=== PATIENT | female | born 1935 | race Caucasian/White ===

== ENCOUNTER → 2016-11-20 | Outpatient (CLI) | payer OTHER ==
[~2016-11-20] MED LIST: ACTNUNK; FLUO20CA35 PO; MICO2CRE61; UNABLE; [UNRECOGNIZED DRUG - REMARK]
== END | disposition home or self-care (01) ==
LOC: C.MAMM 12:23
PROVIDERS: ATTEND Internal Medicine
DX: M81.0 Age-related osteoporosis without current pathological fracture (principal); M85.851 Other specified disorders of bone density and structure, right thigh; M85.852 Other specified disorders of bone density and structure, left thigh

== ENCOUNTER → 2017-01-11 | Outpatient (CLI) | payer OTHER ==
[2017-01-15 22:19] LABS: ALBUMIN 3.4 G/DL (3.8-4.8); GAMMA GLOBULIN 1.1 G/DL (0.8-1.7); TOTAL PROTEIN 6.7 G/DL (6.2-8.3)
== END | disposition home or self-care (01) ==
LOC: C.LAB1850 11:23
PROVIDERS: ATTEND Internal Medicine Rheumatology
DX: M15.9 Polyosteoarthritis, unspecified (principal); M81.0 Age-related osteoporosis without current pathological fracture; Z79.52 Long term (current) use of systemic steroids; E55.9 Vitamin D deficiency, unspecified

== ENCOUNTER → 2017-01-18 | Outpatient (CLI) | payer OTHER ==
--- NOTE | 2017-01-18 12:00 | DIAGNOSTIC IMAGING REPORT ---
RIBS BILATERAL WITH PA CHEST CLINICAL HISTORY: R05 [id number] cough. Pain. COMPARISON STUDY: None FINDINGS: Cortical margins are intact throughout. No evidence for fracture. Lungs are considered clear. IMPRESSION: Negative study Electronically signed by: Rishi Steele M.D. 01/18/2017 11:58 AM Dictated Date/Time: 01/18/2017 11:57 AM
== END | disposition home or self-care (01) ==
LOC: C.RAD1850 11:10
PROVIDERS: ATTEND Internal Medicine
DX: R05 Cough (principal)

== ENCOUNTER → 2017-03-16 | Outpatient (CLI) | payer OTHER | END | disposition home or self-care (01) | LOC: C.LAB1850 09:25 | PROVIDERS: ATTEND Internal Medicine Rheumatology | DX: M15.9 Polyosteoarthritis, unspecified (principal); M81.0 Age-related osteoporosis without current pathological fracture; Z79.52 Long term (current) use of systemic steroids; E55.9 Vitamin D deficiency, unspecified ==

== ENCOUNTER → 2017-04-30 | Outpatient (CLI) | payer OTHER | END | disposition home or self-care (01) | LOC: C.LAB1850 12:15 | PROVIDERS: ATTEND Internal Medicine Rheumatology | DX: M15.9 Polyosteoarthritis, unspecified (principal); M81.0 Age-related osteoporosis without current pathological fracture; M35.3 Polymyalgia rheumatica; Z79.52 Long term (current) use of systemic steroids ==

== ENCOUNTER 2024-05-30 16:13 | Inpatient (IN) ==
--- NOTE | 2024-05-30 16:16 | Emergency Department Note ---
Impression & Plan Closed fracture dislocation of shoulder, Fall, Hypertension ED Provider Note NAME: BISI SEWELL AGE: 89 SEX: F : 1935 ARRIVES VIA: Ambulance INFORMANT: Patient, daughter ED PROVIDER(S): Patrick Jaimes MD CHIEF COMPLAINT: Fall, shoulder pain MEDICAL DECISION MAKING: Patient presented due to concern for fall. Patient initially did receive p.o. pain medication and x-rays were obtained. Fracture dislocation of right shoulder noted. I did speak with the on-call orthopedist Dr. Vasquez who stated that he would consider attempting a reduction but may try it just with pain meds alone. He does state that sometimes these will improve on their own and do not necessarily require conscious sedation reduction and/or operative fixation. I did convey this to the patient and the patient's daughter at bedside. IV was established and blood work was obtained. Blood work shows a white count of 15 with the patient is on chronic steroids. No reported infectious symptoms. Hemoglobin is normal. Platelet count is unremarkable. The patient's kidney function is unremarkable. Patient received some IV fentanyl. I did speak with the on-call hospital service after discussing with the daughter does not believe that she can take her home given that she will not be able to use her right upper extremity and does live alone. Patient was given additional IV fentanyl. An attempt was made to reduce the patient's fracture dislocation. This was unsuccessful. We did send Dr. Vasquez Marion text to make him aware the patient would be admitted and that the patient was yet to have a satisfactory reduction. Patient was placed in a sling and the patient was admitted to the medicine service. Patient was noted to be hypertensive and the patient's hypertensive management deferred to inpatient treatment. Procedures: Anterior Shoulder Dislocation Reduction Indication: Shoulder dislocation/fracture Verbal consent obtained. Risks and benefits were explained with the usual customary discussion. A time out was taken. Neurovascular examination before the procedure revealed radial pulse present. Shoulder dislocation anterior shoulder dislocation was attempted to be reduced with inline traction and attempting abduction with external rotation of the right upper extremity. Patient did have some difficulty in tolerating abduction and external rotation but did tolerate inline traction. X-ray was performed as the patient stated that it felt improved. Patient was still noted to be dislocated. Post procedure radial pulse still present patient was placed in a sling. Discussion w/ other healthcare providers: Dr. Vasquez orthopedics Dr. Sher inpatient medicine service Prior /Outside records reviewed: I reviewed a PCP visit from Dr. Montaño. Patient was seen on February 28, 2024 for healthcare maintenance. Known history of PMNR TIA meningioma. Per review of the patient's home medication list the patient does take chronic steroids but no evidence of blood thinning medication. Differential diagnosis: Fracture, sprain, strain, subluxation, dislocation, contusion, ligamentous injury, neurovascular, as well as other etiologies were considered. Diagnostics, as interpreted by me: ECG: Sinus bradycardia rate of 57, normal intervals, normal axis no ST elevations or TWI. Cardiac monitoring: An order was placed for continuous cardiac monitoring. The monitor shows a rate of 68 with sinus rhythm. Patient was placed on pulse oximetry Medical decision rules: None Imaging studies: I informally interpreted the patient's right shoulder x-ray did not show fracture dislocation with formal report to follow. HPI: Patient presents due to concern for fall that occurred just prior to arrival. The patient was reportedly reaching into a garbage can when she fell to her right side striking her shoulder. Patient denies any LOC head strike and no head or neck pain. The patient denies any back chest or abdominal pain and no lower extremity pain. The patient is right-hand dominant. Patient is accompanied by her mother at bedside. She does interpret for the patient declined help desk representative services. Patient denies any left upper extremity pain. Patient does not use blood thinners. Patient does complain of right shoulder pain. PAST MEDICAL HISTORY: See Below PAST SURGICAL HISTORY: See Below SOCIAL HISTORY: See Below HOME MEDICATIONS: See Below ALLERGIES: See Below VITALS: See Below PHYSICAL EXAMINATION: GENERAL: NAD, non-toxic. EYE EXAM: Normal conjunctiva. PERRL, no anisocoria and EOM's grossly intact w/o pain. Head: Normocephalic atraumatic. OROPHARYNX: Moist mucus membranes, grossly normal dentition. NECK: Trachea midline, no stridor. No midline C-spine TTP. LUNGS: Clear to auscultation. Normal chest wall mechanics. Chest: No reproducible chest pain. HEART: NSR, no MRG. ABDOMEN: Abdomen soft, non-tender, no masses, no rebound or guarding. BACK: No CVA TTP. No pain to palpation. SKIN: No rashes and no bruising. UPPER EXTREMITIES: Right shoulder pain, no obvious deformity able to flex and extend at the right elbow and neurovasc intact distally. No pain to the elbow forearm wrist or hand. No pain to the left upper extremity. LOWER EXTREMITIES: Grossly normal, no edema. No TTP or deformity. NEURO EXAM: A&O x3, cranial nerves II-XII grossly intact, normal speech, moves all 4 extremities. 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 Health care maintenance Sleep disturbances Polymyalgia rheumatica (Acute) Osteoporosis (Acute) Hypercholesterolemia (Acute) Hearing loss (Acute) Generalized osteoarthritis of multiple sites (Acute) Depression (Acute) History of glaucoma (Acute) Polyarthropathy, inflammatory (Acute) Superficial thrombophlebitis (Acute) Vitamin D deficiency disease (Acute) Surgical History History of eye surgery glaucoma Abdominal hernia History of cataract surgery S/P appendectomy Family History Mother Myocardial infarction Hearing loss Other No family history of allergies No family history of bleeding disorder Denies family history of Ovarian cancer Prostate cancer Heart disease Breast cancer Colorectal cancer Cancer Hypertension Stroke Asthma Social History Smoking Status: Never smoker Do You Dip or Chew Tobacco: No; Hx Alcohol Use: No Hx Substance Use: No Preferred Language: Taiwanese Communication Ability: Effective Visual Impairment: No Limitations Hearing Ability: Use of Hearing Aid marital status: Current Living Situation: Alone current occupational status: retired How many Children do You have: 2 Feels Safe at Home: Yes Childhood Exposure to Second-Hand Smoke: No Dental Care, Regularly: Yes Physical Activity Frequency: Does not Exercise Seatbelt Use: always Sunscreen Use: Yes Allergies Allergies Allergy/AdvReac Type Severity Reaction Status Date / Time No Known Drug Allergies Allergy Unknown Unknown Verified 05/30/24 19:16 Home Meds Home Medications Medication Instructions Recorded Confirmed ibuprofen 200 mg capsule 200 mg PO BID PRN Pain 10/09/23 05/30/24 atorvastatin 20 mg tablet 20 mg PO PM 05/30/24 05/30/24 calcium carbonate (Calcium 600) 600 mg PO DAILY 05/30/24 05/30/24 cholecalciferol (vitamin D3) 50 50 mcg PO DAILY 05/30/24 05/30/24 mcg (2,000 unit) tablet (Vitamin D3) fluoxetine 20 mg capsule (Prozac) 20 mg PO QAM 05/30/24 05/30/24 prednisone 5 mg tablet 5 mg PO QAM 05/30/24 05/30/24 Previous Rx's Medication Instructions Recorded atorvastatin 20 mg tablet 20 mg PO QPM #90 tabs 01/31/24 Results & Data (ED) Vital Signs Vital Signs - 24 hr 05/30/24 16:19 05/30/24 16:19 Temperature 36.5 C Temperature Source Oral Pulse Rate 67 67 Pulse Rhythm Regular Pulse Strength Normal Respiratory Rate 20 Respiratory Effort / Characteristics Non-Labored Spontaneous Respiratory Depth Normal Respiratory Pattern Regular Blood Pressure 217/115 H Blood Pressure Mean 149 Blood Pressure Position Sitting Pulse Oximetry 99 Oxygen Delivery Method Room Air Sepsis Recent Fever Within 48 Hours No Sepsis New/Unexplained Change in Mental Status No Sepsis Action Taken by Nursing No Action Required Home Medications Current Medication List: was personally reviewed by me Laboratory Data Attestation: I reviewed the patient's lab results. 05/30/24 18:37 05/30/24 18:37 Lab Results 05/30/24 Range/Units 18:37 WBC 15.26 H (4.8-10.8) K/ul RBC 3.99 L (4.20-5.40) M/uL Hgb 12.0 (12.0-16.0) g/dl Hct 36.4 L (37.0-47.0) % MCV 91.2 (80.0-100.0) fL MCH 30.1 (25.0-34.0) pg MCHC 33.0 (32.0-36.0) g/dL RDW Std Deviation 41.1 (36.4-46.3) fL RDW Coeff of Jose 12.4 (11.5-14.5) % Plt Count 279 (130-400) K/uL MPV 9.3 L (9.4-12.4) fL Immature Gran % (Auto) 0.5 % Neut % (Auto) 90.8 % Lymph % (Auto) 4.7 % [place] % (Auto) 3.6 % Eos % (Auto) 0.1 % Baso % (Auto) 0.3 % Neut # (Auto) 13.85 H (1.40-6.50) K/uL Lymph # (Auto) 0.72 L (1.20-3.40) K/uL [place] # (Auto) 0.55 (0.11-0.59) K/uL Eos # (Auto) 0.01 (0.00-0.50) K/uL Baso # (Auto) 0.05 (0.00-0.20) K/uL Immature Gran # (Auto) 0.08 (0.01-0.20) K/uL Echinocytes 1+ PT 10.8 (9.0-12.0) Seconds INR 1.0 (0.9-1.1) Sodium 139 (136-145) mmol/L Potassium 4.3 (3.5-5.1) mmol/L Chloride 107 (98-107) mmol/L Carbon Dioxide 24 (21-32) mmol/L Anion Gap 8 (3-11) BUN 23 (6-23) mg/dl Creatinine 0.99 (0.6-1.2) mg/dl Est Cr Clr Drug Dosing 33.4 ml/min Est GFR ( Amer) 59.0 ml/min Est GFR (Non-Af Amer) 50.9 ml/min BUN/Creatinine Ratio 23.2 H (10-20) Glucose 149 H (70-99(Fasting)) mg/dl Calcium 9.0 (8.6-10.3) mg/dl Administered Medications Discontinued Medications Acetaminophen (Acetaminophen 500 Mg Tab) 1,000 mg PO NOW STA Stop: 05/30/24 16:25 Last Admin: 05/30/24 16:31 Dose: 1,000 mg Documented By: JLT Fentanyl Citrate (Fentanyl Citrate Pf 100 Mcg/2 Ml Vial) 25 mcg IV NOW ONE Stop: 05/30/24 17:16 Last Admin: 05/30/24 17:34 Dose: 25 mcg Documented By: CEF Fentanyl Citrate (Fentanyl Citrate Pf 100 Mcg/2 Ml Vial) 50 mcg IV NOW STA Stop: 05/30/24 18:36 Last Admin: 05/30/24 18:49 Dose: 50 mcg Documented By: CEF Oxycodone HCl (Oxycodone Hcl Ir 5 Mg Tab (Immediate Release)) 5 mg PO NOW STA Stop: 05/30/24 16:25 Last Admin: 05/30/24 16:30 Dose: 5 mg Documented By: JANICE Imaging Data Radiologist's Impression: Humerus X-Ray 05/30/24 16:24 XR humerus RT 2V CLINICAL HISTORY: Upper arm trauma COMPARISON: None FINDINGS: Anterior right shoulder dislocation is noted. There is an associated Hill-Sachs impaction injury with comminuted, displaced right humeral head fracture which involves the greater tuberosity. Bone fragments measure up to 2.6 cm. No distal right humeral fracture is identified. IMPRESSION: 1. Anterior right shoulder dislocation with an associated Hill-Sachs impaction injury with displaced comminuted right humeral head fracture which involves the greater tuberosity. 2. No distal right humeral fracture. ACT 112: Negative or not required by law. Electronically signed by: Toni Salgado M.D. 05/30/2024 4:52 PM Shoulder X-Ray 05/30/24 16:24 XR shoulder RT min 2V routine CLINICAL HISTORY: Right shoulder trauma. COMPARISON: None FINDINGS: There is anterior dislocation of the right humeral head with respect to the glenoid. There is an associated Hill-Sachs impaction injury with acute moderately displaced and comminuted fracture of the right humeral head, involving the greater tuberosity. Alignment of the right acromioclavicular joint is anatomic. IMPRESSION: Anterior right shoulder dislocation with an associated Hill-Sachs impaction injury with displaced comminuted right humeral head fracture which involves the greater tuberosity. ACT 112: Negative or not required by law. Electronically signed by: Toni Salgado M.D. 05/30/2024 4:51 PM Shoulder X-Ray 05/30/24 17:15 XR shoulder RT 1V CLINICAL HISTORY: repeat TECHNIQUE: 1 views of the right shoulder were obtained. Comparison: Comparison is made to shoulder radiograph 05/30/2024 FINDINGS: Redemonstration of dislocation of the right shoulder with associated fracture. Soft tissue swelling is seen about the shoulder. The visualized portions of the lungs are clear. IMPRESSION: Redemonstration of anterior shoulder dislocation with associated fracture. ACT 112: Negative or not required by law. Electronically signed by: Davian Friedman M.D. 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 Comparison: Comparison is made to rib series 01/18/2017 FINDINGS: No lines and tubes are seen. Cardiomegaly is noted. The lungs are clear. No evidence of pleural effusion or pneumothorax. Partial visualization of right shoulder fracture-dislocation. IMPRESSION: No acute abnormalities apart from known shoulder dislocation/fracture. ACT 112: Negative or not required by law. Electronically signed by: Davian Friedman M.D. 05/30/2024 6:09 PM Discharge Plan Visit Data Chief Complaint: Fall Stated Complaint: Fall Shoulder pain ED Provider: Patrick Jaimes Discharge Problem: Closed fracture dislocation of shoulder, Fall, Hypertension Forms Stand Alone Forms: [facility] Prescriptions Prescriptions: No Action ibuprofen 200 mg capsule 200 mg PO BID PRN (Reason: Pain) atorvastatin 20 mg tablet 20 mg PO QPM Qty: 90 3RF prednisone 5 mg tablet 5 mg PO QAM fluoxetine [Prozac] 20 mg capsule 20 mg PO QAM atorvastatin 20 mg Tablet 20 mg PO PM calcium carbonate [Calcium 600] 600 mg calcium (1,500 mg) Tablet 600 mg PO DAILY cholecalciferol (vitamin D3) [Vitamin D3] 50 mcg (2,000 unit) Tablet 50 mcg PO DAILY Referrals Referrals: Corry Olivarez MD [Primary Care Provider] - Discharge Problem: Closed fracture dislocation of shoulder Qualifiers: Encounter type: initial encounter Laterality: right Qualified Code(s): S42.91XA - Fracture of right shoulder girdle, part unspecified, initial encounter for closed fracture Fall Qualifiers: Encounter type: initial encounter Qualified Code(s): W19.XXXA - Unspecified fall, initial encounter Hypertension Qualifiers: Hypertension type: unspecified Qualified Code(s): I10 - Essential (primary) hypertension
[2024-05-30] MEDS: oxyCODONE HCL IR 5 MG TAB (IMMEDIATE RELEASE) PO STA (16:30)
[2024-05-30] MEDS: ACETAMINOPHEN 500 MG TAB PO STA (16:31)
--- NOTE | 2024-05-30 16:53 | XRay Report ---
XR humerus RT 2V CLINICAL HISTORY: Upper arm trauma COMPARISON: None FINDINGS: Anterior right shoulder dislocation is noted. There is an associated Hill-Sachs impaction injury with comminuted, displaced right humeral head fracture which involves the greater tuberosity. Bone fragments measure up to 2.6 cm. No distal right humeral fracture is identified. IMPRESSION: 1. Anterior right shoulder dislocation with an associated Hill-Sachs impaction injury with displaced comminuted right humeral head fracture which involves the greater tuberosity. 2. No distal right humeral fracture. ACT 112: Negative or not required by law. Electronically signed by: Toni Salgado M.D. 05/30/2024 4:52 PM
--- NOTE | 2024-05-30 16:53 | XRay Report ---
XR shoulder RT min 2V routine CLINICAL HISTORY: Right shoulder trauma. COMPARISON: None FINDINGS: There is anterior dislocation of the right humeral head with respect to the glenoid. There is an associated Hill-Sachs impaction injury with acute moderately displaced and comminuted fracture of the right humeral head, involving the greater tuberosity. Alignment of the right acromioclavicula r joint is anatomic. IMPRESSION: Anterior right shoulder dislocation with an associated Hill-Sachs impaction injury with d isplaced comminuted right humeral head fracture which involves the greater tuberosity. ACT 112: Negative or not required by law. Electronically signed by: Toni Salgado M.D. 05/30/2024 4:51 PM
[2024-05-30] MEDS: fentaNYL citrate PF 100 MCG/2 ML VIAL IV ONE (17:34)
--- NOTE | 2024-05-30 18:12 | XRay Report ---
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 Comparison: Comparison is made to rib series 01/18/2017 FINDINGS: No lines and tubes are seen. Cardiomegaly is noted. The lungs are clear. No evidence of pleural effus ion or pneumothorax. Partial visualization of right shoulder fracture-dislocation. IMPRESSION: No acute abnormalities apart from known shoulder dislocation/fracture. ACT 112: Negative or not required by law. Electronically signed by: Davian Friedman M.D. 05/30/2024 6:09 PM
--- NOTE | 2024-05-30 18:15 | History & Physical Report ---
Date of Service May 30, 2024 Assessment & Plan (1) Dislocation of right shoulder joint: Plan: Admit to med/surge on pulse oximetry Currently stable and nontoxic-appearing Presented to the ED via EMS after she sustained a mechanical fall due to placing weight on her trash can which gave out from under her Did not hit her head or lose consciousness Sustained an anterior right shoulder dislocation with associated hillSachs impaction injury with displaced comminuted right humeral head fracture which involves the greater tuberosity No other acute trauma on exam or imaging ED will reduce the patient's dislocated shoulder shortly and placement of swe lling Patient's daughter will be able to move in with her to help care for her but cannot do this tonight, will most likely be able to bring her home on 05/31/2024 Will order PT/OT consults to ensure she is safe to be discharged home tomorrow with her daughter Patient is neurovascularly intact Pain control with scheduled Tylenol and as needed morphine for severe pain As needed IV Narcan for oversedation or respiratory depression Heart healthy diet with easy to texture and aspiration precautions Fall precautions Bilateral TOSHIA stockings for DVT prophylaxis Will follow-up on initial labs ordered prior to admission Monitor a.m. CBC, CMP, PT/INR (2) Fall: Plan: Patient sustained mechanical fall as she tried to place her weight on her garbage can earlier today which slid out from under her causing her to fall to the ground Rest of care per right shoulder dislocation plan (3) Polymyalgia rheumatica: Plan: Is on chronic 5 mg prednisone daily No signs of adrenal sufficiency Continue to monitor for adrenal insufficiency moving forward but will hold stress dose steroids for now Will continue her home 5 mg prednisone daily (4) TIA (transient ischemic attack): Plan: Nonfocal neurologic exam Denies new neurologic symptoms prior to or after fall Continue home statin Plan The patient was discussed with Dr. Sher at the time of admission History of Present Illness Chief Complaint: Fall, right shoulder pain Primary Care Provider: Corry Olivarez MD Lauren is an 89-year-old female with a past medical history significant for PMR and giant cell arteritis (on 5 mg prednisone daily), osteoporosis, TIA, who presented to the [facility] ED on 05/30/2024 via EMS after sustaining a ground-level fall at home with resultant right upper extremity pain. She was noted to be hypertensive on arrival at 217/115 but was otherwise stable. X-ray of the right humerus was read as anterior right shoulder dislocates that with an associated he Hill-Sachs impaction injury with displaced commuted right humeral head fracture which involves the greater tuberosity. No distal right humeral fracture. Chest x-ray was negative for other signs of acute findings besides her known right shoulder injury. The ED spoke with orthopedics who explained that the patient should be placed in a sling after shoulder dislocation reduction followed outpatient. After discussions with the patient and family it was determined that the patient is not safe to return home tonight as she lives by herself and family is unable to care tonight. Prior to admission the patient was given 5 mg oxycodone, 25 mcg IV fentanyl, and 1 g p.o. Tylenol. Patient was sitting in bed in no acute distress at time of exam with her daughter bedside, history is obtained both. The patient explains that she normally does not leave her house but needed to check her trash can outside to see if she accidentally threw something away that she should not have. Her da yurihter explains that the patient has a garbage can on wheels, she placed her weight on the garbage can to look in in the garbage can rolled out from under her causing her to fall. The patient denies hitting her head or losing consciousness. Her only pain at this time is her right shoulder pain. Denies lightheadedness, dizziness, chest pain, palpitations, unilateral weakness or paresthesias prior to her fall. Her daughter explains that she will be able to move in with her mother to help care for her however she is unable to coordinate this tonight and should be able to take her home tomorrow, 05/31/2024. We discussed CODE STATUS, likely explained that the patient is a DNR/DNI. She would want her daughter to make medical decisions for her if she cannot make them herself. Please refer to Dr. Sher' attestation for any changes to the treatment plan Allergies Allergy/AdvReac Type Severity Reaction Status Date / Time No Known Drug Allergies Allergy Unknown Unknown Verified 05/30/24 19:16 Home Medications Medication Instructions Recorded Confirmed Type ibuprofen 200 mg capsule 200 mg PO BID PRN Pain 10/09/23 05/30/24 History atorvastatin 20 mg tablet 20 mg PO QPM #90 tabs 04/11/24 08/09/24 Rx atorvastatin 20 mg tablet 20 mg PO PM 05/30/24 05/30/24 History calcium carbonate (Calcium 600) 600 mg PO DAILY 05/30/24 05/30/24 History cholecalciferol (vitamin D3) 50 50 mcg PO DAILY 05/30/24 05/30/24 History mcg (2,000 unit) tablet (Vitamin D3) fluoxetine 20 mg capsule (Prozac) 20 mg PO QAM 05/30/24 05/30/24 History prednisone 5 mg tablet 5 mg PO QAM 05/30/24 05/30/24 History 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 Health care maintenance Sleep disturbances Polymyalgia rheumatica (Acute) Osteoporosis (Acute) Hypercholesterolemia (Acute) Hearing loss (Acute) Generalized osteoarthritis of multiple sites (Acute) Depression (Acute) History of glaucoma (Acute) Polyarthropathy, inflammatory (Acute) Superficial thrombophlebitis (Acute) Vitamin D deficiency disease (Acute) Surgical History History of eye surgery glaucoma Abdominal hernia History of cataract surgery S/P appendectomy Family History Mother Myocardial infarction Hearing loss Other No family history of allergies No family history of bleeding disorder Denies family history of Ovarian cancer Prostate cancer Heart disease Breast cancer Colorectal cancer Cancer Hypertension Stroke Asthma Social History Smoking Status: Never smoker Do You Dip or Chew Tobacco: No; Hx Alcohol Use: No Hx Substance Use: No Preferred Language: Beninese Communication Ability: Effective Visual Impairment: No Limitations Hearing Ability: Use of Hearing Aid marital status: Current Living Situation: Alone current occupational status: retired How many Children do You have: 2 Feels Safe at Home: Yes Childhood Exposure to Second-Hand Smoke: No Dental Care, Regularly: Yes Physical Activity Frequency: Does not Exercise Seatbelt Use: always Sunscreen Use: Yes Physical Exam Physical Exam: Physical Exam: General: In no acute distress, stated age, nontoxic-appearing HEENT: Normocephalic, atraumatic, no scleral icterus, pupils around round, symmetrical, and reactive to light, dry mucus membranes, trachea midline, no thyromegaly Chest/Pulm: No respiratory distress, symmetrical chest expansion, clear breath sounds throughout Cardiac: RRR, no murmurs noted Abdomen: Negative for ascites and bruising, normoactive bowel sounds, soft, non-tender to palpation throughout Musculoskeletal: Patient with right upper extremity currently in April rotated with elbow flexed resting on her chest with anterior deformity. No other acute trauma on examination Extremities: Radial, dorsalis pedis, and posterior tibial pulses are intact and symmetrical, no edema noted in the BL LE's Skin: Patient with small skin abrasion on the lateral aspect of the right fifth digit with dried blood, currently without signs of bleeding Neuro: Alert and oriented to person, place, month, year, and president, no focal defects, no tremors noted Psych: No acute distress, calm and cooperative during the exam Results & Data Results & Data Vital Signs (Past 12 Hours) Vital Signs Temp Pulse Resp BP Pulse Ox O2 Del Method 05/30/24 16:19 36.5 C 67 20 217/115 H 99 Room Air Laboratory Results Will follow-up with CBC and CMP ordered just prior to admission Diagnostic Findings Humerus X-Ray 05/30/24 16:24 XR humerus RT 2V CLINICAL HISTORY: Upper arm trauma COMPARISON: None FINDINGS: Anterior right shoulder dislocation is noted. There is an associated Hill-Sachs impaction injury with comminuted, displaced right humeral head fracture which involves the greater tuberosity. Bone fragments measure up to 2.6 cm. No distal right humeral fracture is identified. IMPRESSION: 1. Anterior right shoulder dislocation with an associated Hill-Sachs impaction injury with displaced comminuted right humeral head fracture which involves the greater tuberosity. 2. No distal right humeral fracture. ACT 112: Negative or not required by law. Electronically signed by: Toni Salgado M.D. 05/30/2024 4:52 PM Shoulder X-Ray 05/30/24 16:24 XR shoulder RT min 2V routine CLINICAL HISTORY: Right shoulder trauma. COMPARISON: None FINDINGS: There is anterior dislocation of the right humeral head with respect to the glenoid. There is an associated Hill-Sachs impaction injury with acute moderately displaced and comminuted fracture of the right humeral head, involving the greater tuberosity. Alignment of the right acromioclavicular joint is anatomic. IMPRESSION: Anterior right shoulder dislocation with an associated Hill-Sachs impaction injury with displaced comminuted right humeral head fracture which involves the greater tuberosity. ACT 112: Negative or not required by law. Electronically signed by: Toni Salgado M.D. 05/30/2024 4:51 PM Shoulder X-Ray 05/30/24 17:15 XR shoulder RT 1V CLINICAL HISTORY: repeat TECHNIQUE: 1 views of the right shoulder were obtained. Comparison: Comparison is made to shoulder radiograph 05/30/2024 FINDINGS: Redemonstration of dislocation of the right shoulder with associated fracture. Soft tissue swelling is seen about the shoulder. The visualized portions of the lungs are clear. IMPRESSION: Redemonstration of anterior shoulder dislocation with associated fracture. ACT 112: Negative or not required by law. Electronically signed by: Davian Friedman M.D. 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 Comparison: Comparison is made to rib series 01/18/2017 FINDINGS: No lines and tubes are seen. Cardiomegaly is noted. The lungs are clear. No evidence of pleural effusion or pneumothorax. Partial visualization of right shoulder fracture-dislocation. IMPRESSION: No acute abnormalities apart from known shoulder dislocation/fracture. ACT 112: Negative or not required by law. Electronically signed by: Davian Friedman M.D. 05/30/2024 6:09 PM ECG Additional Comments: Sinus bradycardia without acute ST segment or T wave changes Code Status & VTE Plan Code Status DNR/DNI VTE Prophylaxis Plan VTE Prophylaxis will be ordered: Yes Supervising Physician Co-Signing Physician Notes I have personally seen, evaluated and examined the patient. I have also personally discussed the management of the patient with the resident physician/NICHELLE and I agree with the exam findings documented in the history and physical examination and the documented assessment and plan unless otherwise stated below. Brief Exam: In general this is an 89-year-old female who is alert and oriented x 3. She is accompanied by her daughter at the time he does some translation for us from Setswana to Beninese. HEENT: Normocephalic atraumatic. Heart: Regular no appreciable murmur. Lungs: Diminished due to poor inspiratory effort but essentially clear. Extremities: Intact with no significant peripheral edema. Specifically right upper extremity is neurovascularly intact with good peripheral pulses. She is status post attempted closed reduction. Postreduction x-rays are pending. Neurologically: Alert and oriented no focal deficit. Assessment/plan: As described above. Please refer to orders for further planning. PG Care Time/CCT Total # of Minutes Spent Total Time Spent with Patient: Total time spent is greater than 50% in coordination of care (as documented) at patient's floor/unit and/or counseling patient: Coding [place] [address] INT INP/OBS CARE 2/55MIN Patient Type Established Medical Decision Making Moderate Complexity Diagnoses Dislocation of right shoulder joint S43.004A Fall W19.XXXA Polymyalgia rheumatica M35.3 TIA (transient ischemic attack) G45.9
[2024-05-30] MEDS ORDERED: NALOXONE HCL 0.4 MG/1 ML VIAL/CARP IV PRN (18:42)
[2024-05-30] MEDS: fentaNYL citrate PF 100 MCG/2 ML VIAL IV STA (18:49)
[2024-05-30 18:52] LABS: Hematocrit (blood only) 36.4 % (37.0-47.0); Mean Corpuscular Hemoglobin 30.1 pg (25.0-34.0); Mean Corpuscular Volume 91.2 fL (80.0-100.0); Mean Platelet Volume 9.3 fL (9.4-12.4); Platelet Count 279 K/uL (130-400); RDW Coefficient of Variation 12.4 % (11.5-14.5); RDW Standard Deviation 41.1 fL (36.4-46.3); Red Blood Count 3.99 M/uL (4.20-5.40); White Blood Count 15.26 K/ul (4.8-10.8)
[2024-05-30 19:10] LABS: BUN Creatinine Ratio 23.2 (10-20); Creatinine Clr Calc Pharmacy 33.4 ml/min; Est GFR (Non-African American) 50.9 ml/min; Potassium 4.3 mmol/L (3.5-5.1)
[2024-05-30 19:18] LABS: Prothrombin Time 10.8 Seconds (9.0-12.0)
[2024-05-30 19:19] LABS: Basophils # (auto) 0.05 K/uL (0.00-0.20); Basophils % (auto) 0.3 %; Echinocytes 1+; Eosinophils # (auto) 0.01 K/uL (0.00-0.50); Eosinophils % (auto) 0.1 %; Immature Granulocytes # (auto) 0.08 K/uL (0.01-0.20); Immature Granulocytes % (auto) 0.5 %; Lymphocytes # (auto) 0.72 K/uL (1.20-3.40); Lymphocytes % (auto) 4.7 %; Monocytes # (auto) 0.55 K/uL (0.11-0.59); Monocytes % (auto) 3.6 %; Neutrophils # (auto) 13.85 K/uL (1.40-6.50); Neutrophils % (auto) 90.8 %
[2024-05-30] MEDS ORDERED: MoRPHine SULFATE 2 MG/ML CARP IV PRN (20:16)
[2024-05-30] MEDS ORDERED: ATORVASTATIN 20 MG TAB PO SCH (21:09)
[2024-05-30] MEDS: ACETAMINOPHEN 325 MG TAB PO SCH (22:25)
[2024-05-30] MEDS: ATORVASTATIN 20 MG TAB PO SCH (22:25)
[2024-05-30] MEDS: FAMOTIDINE 10 MG TABLET PO ONE (23:27)
--- NOTE | 2024-05-30 23:53 | CT Scan Report ---
Exam(s): CT RIGHT SHOULDER Without Contrast EXAM: CT Right Upper Extremity Without Intravenous Contrast, Shoulder CLINICAL HISTORY: Reason for exam: Dislocation, eval fx pattern for potential surgery. TECHNIQUE: Axial computed tomography images of the right shoulder without intravenous contrast. CTDI is 28 mGy and DLP is 541 mGy-cm. Automated exposure control was utilized for the study. A dose lowering technique was utilized adhering to the principles of ALARA. COMPARISON: X-ray 05/30/2024 FINDINGS: Anterior dislocation of the shoulder. Comminuted impaction fracturing at the posterior humeral head neck junction. The glenoid is intact. Lipohemarthrosis within the joint. No other fracture. Unremarkable appearance of the acromioclavicular joint. Visualized portion of the right lung is clear. IMPRESSION: 1. Anterior dislocation of the shoulder. Comminuted impaction fracturing at the posterior humeral head neck junction. The glenoid is intact. 2. Lipohemarthrosis within the joint. Electronically signed by: Vincenzo Whipple MD 05/30/24 23:52 PM
[2024-05-31 06:48] LABS: Basophils # (auto) 0.05 K/uL (0.00-0.20); Basophils % (auto) 0.4 %; Eosinophils # (auto) 0.05 K/uL (0.00-0.50); Eosinophils % (auto) 0.4 %; Hematocrit (blood only) 35.9 % (37.0-47.0); Immature Granulocytes # (auto) 0.05 K/uL (0.01-0.20); Immature Granulocytes % (auto) 0.4 %; Lymphocytes # (auto) 1.82 K/uL (1.20-3.40); Lymphocytes % (auto) 15.3 %; Mean Corpuscular Hemoglobin 30.8 pg (25.0-34.0); Mean Corpuscular Hgb Conc 33.4 g/dL (32.0-36.0); Mean Corpuscular Volume 92.1 fL (80.0-100.0); Mean Platelet Volume 9.3 fL (9.4-12.4); Monocytes # (auto) 0.88 K/uL (0.11-0.59); Monocytes % (auto) 7.4 %; Neutrophils # (auto) 9.03 K/uL (1.40-6.50); Neutrophils % (auto) 76.1 %; Platelet Count 263 K/uL (130-400); RDW Coefficient of Variation 12.4 % (11.5-14.5); RDW Standard Deviation 41.3 fL (36.4-46.3); White Blood Count 11.88 K/ul (4.8-10.8)
[2024-05-31 07:18] LABS: Albumin Globulin Ratio 1.3 (0.9-2); Albumin Level 3.5 gm/dl (3.4-5.0); BUN Creatinine Ratio 20.7 (10-20); Bilirubin,Total 0.9 mg/dl (0.2-1.0); Calcium 8.2 mg/dl (8.6-10.3); Creatinine Clr Calc Pharmacy 39.4 ml/min; Est GFR (Non-African American) 63.9 ml/min; Globulin 2.8 gm/dl (2.5-4.0); Potassium 3.7 mmol/L (3.5-5.1); Total Protein 6.3 gm/dl (6.0-8.3)
--- NOTE | 2024-05-31 07:51 | XRay Report ---
XR shoulder RT min 2V routine CLINICAL HISTORY: repeat COMPARISON: Right shoulder radiographs May 30, 2024 at 5:33 PM. FINDINGS: There is a persistent anterior right shoulder dislocation within associated Hill-Sachs imp action injury with displaced comminuted right humeral head fracture. IMPRESSION: Persistent anterior right shoulder within associated Hill-Sachs impaction injury with dis placed comminuted right humeral head fracture. ACT 112: Negative or not required by law. Electronically signed by: Toni Salgado M.D. 05/31/2024 7:50 AM
--- NOTE | 2024-05-31 08:26 | Anesthesiology Consultation ---
Date of Service May 31, 2024 Assessment & Plan Chart Review Chart Review: Acceptable Risk for Surgery and Patient NOT seen in Pre Admission Testing Consults Requested none ASA ASA4 Proposed Anesthesia Anesthesia Type: General History Surgery Operation Date: 05/31/24 08:00 Proposed Procedures p Open Reduction Internal Fixation Robina Vasquez MD Height/Weight Height: 4 ft 11 in Weight: 66.9 kg Allergies Allergy/AdvReac Type Severity Reaction Status Date / Time No Known Drug Allergies Allergy Unknown Unknown Verified 05/30/24 19:16 Medications Home Medications Medication Instructions Recorded Confirmed Last Taken ibuprofen 200 mg capsule 200 mg PO BID PRN Pain 10/09/23 05/30/24 Unknown atorvastatin 20 mg tablet 20 mg PO QPM #90 tabs 01/31/24 05/30/24 05/29/24 atorvastatin 20 mg tablet 20 mg PO PM 05/30/24 05/30/24 05/29/24 calcium carbonate (Calcium 600) 600 mg PO DAILY 05/30/24 05/30/24 05/30/24 cholecalciferol (vitamin D3) 50 50 mcg PO DAILY 05/30/24 05/30/24 05/30/24 mcg (2,000 unit) tablet (Vitamin D3) fluoxetine 20 mg capsule (Prozac) 20 mg PO QAM 05/30/24 05/30/24 05/30/24 prednisone 5 mg tablet 5 mg PO QAM 05/30/24 05/30/24 05/30/24 Active Medications Generic Name Dose Route Start Last Admin Trade Name Freq PRN Reason Stop Dose Admin Atorvastatin Calcium 20 mg 05/30/24 21:09 05/30/24 22:25 Atorvastatin 20 Mg Tab PO 06/29/24 21:08 20 mg QPM BEATRICE Administration Past Medical History HLD HTN Hx/o meningioma Hx/o TIA Hx/o transient visual loss Giant Cell arteritis PMR mild cognitive disorder osteoporosis depression glaucoma arthralgias Exercise / Class Metabolic Activity III < 4 Walking/Shop/Light housework Past Family History Family History Mother Myocardial infarction Hearing loss Other No family history of allergies No family history of bleeding disorder Denies family history of Ovarian cancer Prostate cancer Heart disease Breast cancer Colorectal cancer Cancer Hypertension Stroke Asthma Past Surgical History Surgical History History of eye surgery glaucoma Abdominal hernia History of cataract surgery S/P appendectomy Past Anesthesia History No Hx of Anesthesia Complications and No Family Hx of Anesthesia Complications History of PONV No Hx of PONV and No Hx of Motion Sickness Social History Smoking Status: Former smoker Do You Dip or Chew Tobacco: No Hx Alcohol Use: No Hx Substance Use: No substance use type: does not use Physical Exam Vital Signs Last Vital Signs Temp 36.8 C 05/31/24 07:31 Pulse 59 L 05/31/24 07:31 Resp 16 05/31/24 07:31 BP 167/80 H 05/31/24 07:31 Pulse Ox 94 05/31/24 07:31 O2 Del Method Room Air 05/31/24 07:31 Testing Laboratory Results 05/31/24 06:10 05/31/24 06:10 PT 10.8 Seconds (9.0-12.0) 05/30/24 18:37 INR 1.0 (0.9-1.1) 05/30/24 18:37 Electrocardiogram Date: 05/30/24 Findings: + LVH and + SB @ (@ 57) Chest X-Ray Date: 05/30/24 Findings: + NAD and + cardiomegaly
[2024-05-31] MEDS ORDERED: PROPOFOL IV EMULSION 10 MG/ML 20 ML VIAL IV ONE (08:55)
[2024-05-31] MEDS ORDERED: KETAMINE HCL 10MG/ML SYR ONE (08:55)
--- NOTE | 2024-05-31 08:57 | Orthopedic Consultation ---
Date of Service May 31, 2024 Assessment & Plan (1) Closed fracture dislocation of shoulder: I reviewed the diagnosis, prognosis, and treatment options. Given that she has relative good function and had normal shoulder prior to the injury, this needs to be treated with a closed reduction. If necessary today, I would make an incision to ensure that the reduction is performed and this may involve a rotator cuff repair. I did discuss the outcomes of tuberosity fractures and the potential need for further repair of the rotator cuff mechanism versus reverse shoulder arthroplasty is a remote possibility. The plan will be to do a closed reduction to preserve the shoulder joint and restore function. Likely this is all that she needs. I reviewed with her and her daughter that the risks include, but are not limited to, infection in the case of incision, nerve or vessel injury, failure of treatment, need for further surgery, pain syndromes, blood clots, and complications leg anesthesia. They both demonstrated a good understanding, understood the risk involved, and want to proceed with intervention to realign the shoulder joint. History of Present Illness Reason for Consultation: Right shoulder fracture dislocation Requesting Physician: Dario Haji Attending Physician: Tim Rivera MD 89-year-old female who is relatively healthy and active and lives independently in her own home sustained a fall when she was leaning over the trash can last night resulting in immediate pain and deformity to her right shoulder. She was seen in the emergency room. Closed reduction under light sedation was attempted but failed. She was admitted for further care. Orthopedic surgery consulted for shoulder care. She is evaluated with her daughter present. She previous had full function of that shoulder. She describes no numbness or tingling the right upper extremity. Maintains good hand function. This is her dominant side. Allergies Allergy/AdvReac Type Severity Reaction Status Date / Time No Known Drug Allergies Allergy Unknown Unknown Verified 05/30/24 19:16 Home Medications Medication Instructions Recorded Confirmed Type ibuprofen 200 mg capsule 200 mg PO BID PRN Pain 10/09/23 05/30/24 History atorvastatin 20 mg tablet 20 mg PO QPM #90 tabs 01/31/24 05/30/24 Rx atorvastatin 20 mg tablet 20 mg PO PM 05/30/24 05/30/24 History calcium carbonate (Calcium 600) 600 mg PO DAILY 05/30/24 05/30/24 History cholecalciferol (vitamin D3) 50 50 mcg PO DAILY 05/30/24 05/30/24 History mcg (2,000 unit) tablet (Vitamin D3) fluoxetine 20 mg capsule (Prozac) 20 mg PO QAM 05/30/24 05/30/24 History prednisone 5 mg tablet 5 mg PO QAM 05/30/24 05/30/24 History Past Med/Surg History Problem List Hypertension (Acute) Fall (Acute) Closed fracture dislocation of shoulder (Acute 05/30/24) displaced comminuted right humeral head fracture which involves the greater tuberosity from a fall Dislocation of right shoulder joint Fall Transient visual loss Meningioma TIA (transient ischemic attack) GCA (giant cell arteritis) Arthralgia Mild cognitive disorder Hyperglycemia Tinnitus, bilateral 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 Health care maintenance Sleep disturbances Polymyalgia rheumatica (Acute) Osteoporosis (Acute) Hypercholesterolemia (Acute) Hearing loss (Acute) Generalized osteoarthritis of multiple sites (Acute) Depression (Acute) History of glaucoma (Acute) Polyarthropathy, inflammatory (Acute) Superficial thrombophlebitis (Acute) Vitamin D deficiency disease (Acute) Surgical History History of eye surgery glaucoma Abdominal hernia History of cataract surgery S/P appendectomy Family History Mother Myocardial infarction Hearing loss Other No family history of allergies No family history of bleeding disorder Denies family history of Ovarian cancer Prostate cancer Heart disease Breast cancer Colorectal cancer Cancer Hypertension Stroke Asthma Social History Smoking Status: Former smoker Do You Dip or Chew Tobacco: No; Hx Alcohol Use: No Hx Substance Use: No Preferred Language: Wallisian Communication Ability: Effective Visual Impairment: No Limitations Hearing Ability: Use of Hearing Aid Trauma Manager Required: Yes Beliefs That Will Affect Care: Druze Druze Beliefs: Wallisian marital status: Current Living Situation: Alone current occupational status: retired How many Children do You have: 2 Other Information That Helps Us Care for You: No Feels Safe at Home: Yes Safety Concerns: Feels Safe At This Time Childhood Exposure to Second-Hand Smoke: No Dental Care, Regularly: Yes Physical Activity Frequency: Does not Exercise Seatbelt Use: always Sunscreen Use: Yes Assistive Devices: Hearing Aid - Bilateral and Walker Review of Systems All systems reviewed & are unremarkable except as noted in HPI & below. Physical Exam Right shoulder: Overlying skin is intact. No significant deformity appreciable. Arm held in a sling. Sensation grossly intact to light touch. Motor intact to the AIN/ulnar/radial nerve distribution. Constitutional WD/WN, vitals as above Respiratory normal respiratory effort; no respiratory distress Cardiovascular Extremities: normal capillary refill; no edema Chest (Breasts) Chest: normal inspection of chest Skin no rashes, warm and dry Psychiatric A+Ox3, euthymic affect Results & Data Results & Data Laboratory Results H & H 05/30/24 05/31/24 Range/Units 18:37 06:10 Hgb 12.0 12.0 (12.0-16.0) g/dl Hct 36.4 L 35.9 L (37.0-47.0) % Coagulation 05/30/24 Range/Units 18:37 INR 1.0 (0.9-1.1) Diagnostic Findings Right shoulder CT scan demonstrates a fracture dislocation. The fracture involves the Hill-Sachs region of the humeral head. Humeral head is incarcerated on the Hill-Sachs lesion on the glenoid rim. No obvious glenoid disturbance. PG Care Time/CCT Total # of Minutes Spent Total Time Spent with Patient: Total time spent is greater than 50% in coordination of care (as documented) at patient's floor/unit and/or counseling patient: Coding Level of Care Code 58380 IN/OBS CONSULT LVL 4,60M (57 - DECISION FOR SURGERY) Diagnoses Closed fracture dislocation of shoulder S42.91XA Encounter type: initial encounter Laterality: right (1) Closed fracture dislocation of shoulder Encounter type: initial encounter Laterality: right Qualified Code(s): S42.91XA - Fracture of right shoulder girdle, part unspecified, initial encounter for closed fracture
--- NOTE | 2024-05-31 09:02 | Electrocardiogram Report ---
Test Reason : Blood Pressure : */* mmHG Vent. Rate : 57 BPM Atrial Rate : 57 BPM P-R Int : 142 ms QRS Dur : 72 ms QT Int : 464 ms P-R-T Axes : 55 7 42 degrees QTcB Int : 451 ms Sinus bradycardia Minimal voltage criteria for LVH, may be normal variant ( R in aVL ) Borderline ECG When compared with ECG of 05-Feb-2011 16:32, No significant change Confirmed by Reymundo Haas ([id number]) on 05/31/2024 9:02:45 AM Referred By: REFERRED SELF Confirmed By: Reymundo Haas
[2024-05-31] MEDS ORDERED: fentaNYL citrate PF 100 MCG/2 ML VIAL ONE (09:31)
[2024-05-31] MEDS ORDERED: NALOXONE HCL 0.4 MG/1 ML VIAL/CARP IV PRN (09:37)
[2024-05-31] MEDS ORDERED: ATROPINE SULFATE 0.1 MG/ML 10ML SYR IV PRN (09:37)
[2024-05-31] MEDS ORDERED: PROMETHAZINE HCL 6.25 MG in SODIUM CHLORIDE 0.9% 50 ML IV PRN (09:37)
[2024-05-31] MEDS ORDERED: ePHEDrine sulfate 50 MG/ML AMP IV PRN (09:37)
[2024-05-31] MEDS ORDERED: ONDANSETRON INJ 2 MG/ML 2 ML VIAL IV PRN (09:37)
[2024-05-31] MEDS: fentaNYL citrate PF 100 MCG/2 ML VIAL IV PRN (09:44)
--- NOTE | 2024-05-31 09:49 | Operative Report ---
PG Post Operative Report Pre & Post Diagnosis Operation Date: 05/31/24 08:00 Pre-Op Diagnosis: Right shoulder dislocation Post-Op Diagnosis: Right shoulder dislocation I identified the patient and participated in the time-out.: Yes Procedure Operation Date: 05/31/24 08:00 Actual Procedures p Right Shoulder Closed Reduction(Right) - Dario Vasquez MD Surgeon Dario Vasquez MD Zone Manager None Estimated Blood Loss 0 Findings See Below Palpable reduction. Stable to 45 degrees of abduction and 20 degrees of external rotation. Specimens None Anesthesia Type MAC Complications none Disposition Accompanied Patient To Recovery: Yes Disposition: Recovery Room Indications 89-year-old female fell onto outstretched arm resulting in a right proximal humerus fracture dislocation involving the posterior aspect of the greater tuberosity. Closed reduction attempted by the ER were unsuccessful. She was admitted overnight for further care. I recommend a closed, possible open, reduction expeditiously. I reviewed the risk, benefits, and alternatives in detail to the patient and her daughter. They were agreeable to proceed. Informed consent was obtained in the preoperative holding area. Description of Procedure On the day of surgery, the patient was greeted in the preoperative holding area. The informed consent was reviewed and confirmed by myself and the patient. The patient identified the surgical site and was marked by me. The patient was then turned over to anesthesia. She was taken to the OR. She was left on the hospital bed. Monitored anesthesia care was induced. Surgical timeout was called by the circulating nurse, and verified by all present. Equipment was available and functional. Initiate a closed reduction maneuvers with inline traction forward flexion and manual manipulation of the proximal humerus to get a palpable reduction. Immediately her range of motion was improved. It felt reliably stable through abduction and external rotation until beyond 45 degrees of external rotation. She had full forward flexion. Multiple fluoroscopic views including an axillary lateral view were obtained to ensure a concentric reduction. This point the procedure was complete. The arm was placed in a postoperative sling with abduction pillow with waist strap to control the arm. She was turned back over to anesthesia for recovery. She was transported to the recovery room aware of her surroundings and without complications. Disposition: She will be nonweightbearing to the right upper extremity. Range of motion will be allowed through the elbow with the arm held against her flank. Wrist and digital motion as tolerated. Will remain in the sling for 6 weeks, and she should be evaluated radiographically in our clinic in 1 to 2 weeks to ensure appropriate alignment of the fracture and reduction of the joint. She will remain inpatient to evaluate her home care needs before transfer or dischar ge. I attest to the content of the Intraoperative Record and any orders documented therein. Any exceptions are noted below.
--- NOTE | 2024-05-31 09:59 | Fluoroscopy Report ---
FL shoulder RT min 2V CLINICAL HISTORY: RT CLOSED REDUCTION SHOULDER/POSSIBLE OPEN COMPARISON STUDY: Right shoulder radiographs and right shoulder CT May 30, 2024. FLUOROSCOPY TIME: 6 seconds. Ka, r: 0.33 mGy FLUOROSCOPIC IMAGES: 4 FINDINGS: Fluoroscopy was provided during closed reduction of the right shoulder dislocation. These i mages demonstrate anatomic alignment of the right glenohumeral joint following reduction. In addition , alignment of the right humeral head fracture has markedly improved. IMPRESSION: Fluoroscopy right during closed reduction of the right shoulder dislocation/fracture. ACT 112: Negative or not required by law. Electronically signed by: Toni Salgado M.D. 05/31/2024 9:57 AM
[2024-05-31] MEDS: fentaNYL citrate PF 100 MCG/2 ML VIAL ONE (10:00)
[2024-05-31] MEDS: LABETALOL HCL IV 5 MG/ML 20ML IV PRN (10:06)
--- NOTE | 2024-05-31 10:18 | Anesthesiology Progress Note ---
Date of Service May 31, 2024 Anesthesia Post Procedure Vital Signs Vital Signs: Temp Pulse Pulse Pulse Resp BP BP 05/31/24 10:15 36.3 C L 65 19 05/31/24 10:06 67 175/69 H 05/31/24 10:05 70 17 05/31/24 09:55 64 20 05/31/24 09:45 77 22 05/31/24 09:39 36.0 C L 65 14 05/31/24 07:31 36.8 C 59 L 16 167/80 H 05/30/24 20:45 05/30/24 20:45 36.6 C 60 18 182/73 H 05/30/24 20:20 90 18 172/105 H 05/30/24 16:19 67 05/30/24 16:19 36.5 C 67 20 217/115 H BP Pulse Ox O2 Del Method O2 Flow Rate 05/31/24 10:15 153/56 H 95 Nasal Cannula 2 05/31/24 10:06 05/31/24 10:05 175/69 H 92 Nasal Cannula 2 05/31/24 09:55 186/78 H 93 Room Air 05/31/24 09:45 189/73 H 99 Oxymask 8 05/31/24 09:39 222/109 H 100 Oxymask 8 05/31/24 07:31 94 Room Air 05/30/24 20:45 Room Air 05/30/24 20:45 96 Room Air 05/30/24 20:20 95 Room Air 05/30/24 16:19 05/30/24 16:19 99 Room Air Pain Intensity Right Shoulder: Pain Intensity: 3 Transfer of Care Handoff Completed per policy Notes Mental Status: alert / awake / arousable Patient Amnestic to Procedure: Yes Nausea / Vomiting: adequately controlled Pain: adequately controlled Airway Patency, RR, SpO2: stable & adequate BP & HR: stable & adequate Hydration State: stable & adequate Anesthetic Complications: no major complications apparent
[2024-05-31] MEDS: FLUoxetine HCL 20 MG CAP PO SCH (10:38)
[2024-05-31] MEDS: predniSONE 5 MG TAB PO SCH (10:38)
[2024-05-31] MEDS: SODIUM CHLORIDE 0.9% 1,000 ML IV SCH (10:39)
--- NOTE | 2024-05-31 10:43 | XRay Report ---
XR shoulder RT min 2V routine CLINICAL HISTORY: Post shoulder surgery COMPARISON: Right shoulder radiographs and right shoulder CT May 30, 2024. FINDINGS: Alignment of the right glenohumeral joint is anatomic post reduction. Alignment of the rig ht humeral head fracture extending through the greater tuberosity has significantly improved. An asso ciated 8 mm fracture fragment is present. Fracture is mildly displaced and comminuted. Mild right bas ilar opacity favors atelectasis. IMPRESSION: Anatomic alignment of the right glenohumeral joint post reduction. Significant improvemen t in alignment of the right humeral head fracture post reduction. ACT 112: Negative or not required by law. Electronically signed by: Toni Salgado M.D. 05/31/2024 10:41 AMr
--- NOTE | 2024-05-31 16:05 | Hospitalist Progress Note ---
Date of Service May 31, 2024 Assessment & Plan (1) Dislocation of right shoulder joint: Plan: Presented to the ED via EMS after she sustained a mechanical fall due to placing weight on her trash can which gave out from under her Did not hit her head or lose consciousness Sustained an anterior right shoulder dislocation with associated hillSachs impaction injury with displaced comminuted right humeral head fracture which involves the greater tuberosity Patient had right shoulder closed reduction done in the OR by orthopedics PT/OT consulted Pain control with scheduled Tylenol and as needed morphine for severe pain As needed IV Narcan for oversedation or respiratory depression Heart healthy diet with easy to texture and aspiration precautions Fall precautions (2) Fall: Plan: Patient sustained mechanical fall as she tried to place her weight on her garbage can earlier today which slid out from under her causing her to fall to the ground Rest of care per right shoulder dislocation plan Consult PT/OT (3) Polymyalgia rheumatica: Plan: Is on chronic 5 mg prednisone daily No signs of adrenal sufficiency Continue to monitor for adrenal insufficiency moving forward but will hold stress dose steroids for now Will continue her home 5 mg prednisone daily (4) TIA (transient ischemic attack): Plan: Nonfocal neurologic exam Denies new neurologic symptoms prior to or after fall Continue home statin Plan Pending PT/OT and case management eval for disposition needs Admission and Anticipated Discharge Date Admission Date: May 30, 2024 Subjective Patient just came out of the OR when I met her in her room. She is still quite groggy. Met with her daughter at the bedside. Review of Systems Review of Systems: Unobtainable due to reduced consciousness Physical Exam Physical Exam: General: Sleepy, arousable Heart: S1, S2/regular rate and rhythm, no murmur rubs or gallops Lungs: Clear to auscultation bilaterally. Normal effort Abdomen: Soft/nontender/nondistended. No hepatosplenomegaly Extremities: No clubbing/cyanosis. No edema Behavior: Unable to assess Results & Data Results & Data Vital Signs (Past 12 Hours) Vital Signs Temp Pulse Pulse Pulse Resp BP BP 05/31/24 15:33 36.4 C L 71 1 L 153/78 H 05/31/24 13:30 36.6 C 76 16 141/88 H 05/31/24 12:33 36.5 C 80 18 133/75 05/31/24 11:30 36.6 C 74 16 140/75 05/31/24 11:00 36.5 C 78 16 127/73 05/31/24 10:30 36.5 C 66 16 138/77 05/31/24 10:15 36.3 C L 65 19 05/31/24 10:06 67 175/69 H 05/31/24 10:05 70 17 05/31/24 09:55 64 20 05/31/24 09:45 77 22 05/31/24 09:39 36.0 C L 65 14 05/31/24 07:31 36.8 C 59 L 16 167/80 H BP Pulse Ox O2 Del Method O2 Flow Rate 05/31/24 15:33 95 Room Air 05/31/24 13:30 97 Nasal Cannula 2 05/31/24 12:33 97 Nasal Cannula 2 05/31/24 11:30 97 Nasal Cannula 2 05/31/24 11:00 96 Nasal Cannula 2 05/31/24 10:30 94 Room Air 05/31/24 10:15 153/56 H 95 Nasal Cannula 2 05/31/24 10:06 05/31/24 10:05 175/69 H 92 Nasal Cannula 2 05/31/24 09:55 186/78 H 93 Room Air 05/31/24 09:45 189/73 H 99 Oxymask 8 05/31/24 09:39 222/109 H 100 Oxymask 8 05/31/24 07:31 94 Room Air Laboratory Results Abnormal lab results 05/30/24 05/31/24 Range/Units 18:37 06:10 WBC 15.26 H 11.88 H (4.8-10.8) K/ul RBC 3.99 L 3.90 L (4.20-5.40) M/uL Hct 36.4 L 35.9 L (37.0-47.0) % MPV 9.3 L 9.3 L (9.4-12.4) fL Neut # (Auto) 13.85 H 9.03 H (1.40-6.50) K/uL Lymph # (Auto) 0.72 L (1.20-3.40) K/uL [place] # (Auto) 0.88 H (0.11-0.59) K/uL BUN/Creatinine Ratio 23.2 H 20.7 H (10-20) Glucose 149 H 110 H (70-99(Fasting)) mg/dl Calcium 8.2 L (8.6-10.3) mg/dl PG Care Time/CCT Total # of Minutes Spent Total Time Spent with Patient: Total time spent is greater than 50% in coordination of care (as documented) at patient's floor/unit and/or counseling patient: Coding Level of Care Code 21798 SUB INP/OBS CARE 2/35MIN Diagnoses Dislocation of right shoulder joint S43.004A Fall W19.XXXA Polymyalgia rheumatica M35.3 TIA (transient ischemic attack) G45.9
[2024-06-01 07:13] LABS: Basophils # (auto) 0.04 K/uL (0.00-0.20); Basophils % (auto) 0.3 %; Eosinophils # (auto) 0.06 K/uL (0.00-0.50); Eosinophils % (auto) 0.5 %; Hemoglobin 11.6 g/dl (12.0-16.0); Immature Granulocytes # (auto) 0.07 K/uL (0.01-0.20); Immature Granulocytes % (auto) 0.6 %; Lymphocytes # (auto) 1.41 K/uL (1.20-3.40); Lymphocytes % (auto) 11.7 %; Mean Corpuscular Hemoglobin 30.5 pg (25.0-34.0); Mean Corpuscular Hgb Conc 33.1 g/dL (32.0-36.0); Mean Corpuscular Volume 92.1 fL (80.0-100.0); Mean Platelet Volume 9.3 fL (9.4-12.4); Monocytes # (auto) 0.92 K/uL (0.11-0.59); Monocytes % (auto) 7.6 %; Neutrophils # (auto) 9.59 K/uL (1.40-6.50); Neutrophils % (auto) 79.3 %; Platelet Count 257 K/uL (130-400); RDW Coefficient of Variation 12.4 % (11.5-14.5); RDW Standard Deviation 41.8 fL (36.4-46.3); White Blood Count 12.09 K/ul (4.8-10.8)
[2024-06-01 08:01] LABS: Albumin Globulin Ratio 1.2 (0.9-2); Albumin Level 3.4 gm/dl (3.4-5.0); BUN Creatinine Ratio 14.7 (10-20); Bilirubin,Total 1.1 mg/dl (0.2-1.0); Calcium 7.9 mg/dl (8.6-10.3); Creatinine Clr Calc Pharmacy 43.1 ml/min; Est GFR (African American) 82.5 ml/min; Est GFR (Non-African American) 71.2 ml/min; Globulin 2.8 gm/dl (2.5-4.0); Potassium 3.9 mmol/L (3.5-5.1); Total Protein 6.2 gm/dl (6.0-8.3)
[2024-06-01] MEDS: ACETAMINOPHEN 325 MG TAB PO PRN (08:39)
[2024-06-01] MEDS: DOCUSATE SODIUM 100 MG CAP PO SCH (10:01)
[2024-06-01] MEDS: POLYETHYLENE (MIRALAX) 17 GM PACK PO SCH (10:01)
--- NOTE | 2024-06-01 14:27 | Orthopedic Progress Note ---
Date of Service June 01, 2024 Assessment & Plan (1) Closed fracture dislocation of shoulder: Postop day 1 for closed reduction of the glenohumeral fracture dislocation under anesthesia. - Continue sling and nonweightbearing to the right upper extremity. - Sling can be open for elbow wrist and digital range of motion. She can use the arm for eating and other ADLs with minimal weightbearing and with the arm held closely to her side. Prefer no external rotation for several weeks. - Plan for 6 weeks of strict sling use followed by physical therapy to optimize functional range of motion. No plans for surgical intervention at this time Dispo: Orthopedically stable for discharge. She has complex discharge planning needs because she lives alone. Subjective Reports that she is having some discomfort about the shoulder as she has gotten up and moved. No new injuries or sensations of instability. No issues with the sling other than the belly strap may be a little tight. She is having some mild left rib pain. Daughter was present in the room with us again today and helped with translation and some of the history. Review of Systems All systems reviewed & are unremarkable except as noted in HPI & below. Physical Exam Sitting upright in the chair next to the bed. Appears comfortable. The sling was position well. Right upper extremity: Mild edema, as expected to the anterior shoulder. Sling was opened up for elbow drop out. She could achieve full elbow extension, rolled her wrist and range all her fingers. She seemed comfortable with that. I demonstrated that range of motion and the usefulness for this for eating. Physical therapy was in the room at the time. Arm was placed back in the sling. Neurovascularly intact. Constitutional WD/WN, vitals as above no acute distress and not intoxicated appearing Respiratory normal respiratory effort; no labored breathing Cardiovascular Extremities: normal capillary refill Results & Data Results & Data Laboratory Results . Diagnostic Findings . PG Care Time/CCT Total # of Minutes Spent Total Time Spent with Patient: Total time spent is greater than 50% in coordination of care (as documented) at patient's floor/unit and/or counseling patient: Coding Level of Care Code 96350 Post Operative Follow-Up Diagnoses Closed fracture dislocation of shoulder S42.90XA
--- NOTE | 2024-06-01 16:30 | Hospitalist Progress Note ---
Date of Service June 01, 2024 Assessment & Plan (1) Dislocation of right shoulder joint: Plan: Presented to the ED via EMS after she sustained a mechanical fall due to placing weight on her trash can which gave out from under her Did not hit her head or lose consciousness Sustained an anterior right shoulder dislocation with associated hillSachs impaction injury with displaced comminuted right humeral head fracture which involves the greater tuberosity Patient had right shoulder closed reduction done in the OR by orthopedics PT/OT recommends inpatient rehab Pain control with scheduled Tylenol and as needed morphine for severe pain As needed IV Narcan for oversedation or respiratory depression Heart healthy diet with easy to texture and aspiration precautions Fall precautions (2) Fall: Plan: Patient sustained mechanical fall as she tried to place her weight on her garbage can earlier today which slid out from under her causing her to fall to the ground Rest of care per right shoulder dislocation plan PT/OT recommend inpatient rehab (3) Polymyalgia rheumatica: Plan: Is on chronic 5 mg prednisone daily No signs of adrenal sufficiency Continue to monitor for adrenal insufficiency moving forward but will hold stress dose steroids for now Will continue her home 5 mg prednisone daily (4) TIA (transient ischemic attack): Plan: Nonfocal neurologic exam Denies new neurologic symptoms prior to or after fall Continue home statin Plan PT/OT recommends inpatient rehab. Case management involved Admission and Anticipated Discharge Date Admission Date: May 30, 2024 Subjective Patient feels well. Denies chest pain or shortness of breath. Daughter at the bedside. Review of Systems Review of Systems: All systems reviewed & are unremarkable except as noted in Subjective Physical Exam Physical Exam: General: Awake, conversant Heart: S1, S2/regular rate and rhythm, no murmur rubs or gallops Lungs: Clear to auscultation bilaterally. Normal effort Abdomen: Soft/nontender/nondistended. No hepatosplenomegaly Extremities: No clubbing/cyanosis. No edema. Right arm in sling. Behavior: Appropriate, cooperative Results & Data Results & Data Vital Signs (Past 12 Hours) Vital Signs Temp Pulse Resp BP Pulse Ox O2 Del Method 06/01/24 14:46 36.3 C L 69 16 133/62 94 Room Air 06/01/24 10:47 36.6 C 69 16 121/68 94 Room Air 06/01/24 07:54 60 18 136/75 94 Room Air PG Care Time/CCT Total # of Minutes Spent Total Time Spent with Patient: Total time spent is greater than 50% in coordination of care (as documented) at patient's floor/unit and/or counseling patient: Coding Level of Care Code 39400 SUB INP/OBS CARE 2/35MIN Diagnoses Dislocation of right shoulder joint S43.004A Fall W19.XXXA Polymyalgia rheumatica M35.3 TIA (transient ischemic attack) G45.9
[2024-06-02 07:18] LABS: Basophils # (auto) 0.05 K/uL (0.00-0.20); Basophils % (auto) 0.5 %; Hematocrit (blood only) 37.4 % (37.0-47.0); Hemoglobin 12.1 g/dl (12.0-16.0); Immature Granulocytes # (auto) 0.05 K/uL (0.01-0.20); Immature Granulocytes % (auto) 0.5 %; Lymphocytes # (auto) 1.47 K/uL (1.20-3.40); Lymphocytes % (auto) 14.6 %; Mean Corpuscular Hemoglobin 30.6 pg (25.0-34.0); Mean Corpuscular Hgb Conc 32.4 g/dL (32.0-36.0); Mean Corpuscular Volume 94.4 fL (80.0-100.0); Mean Platelet Volume 9.4 fL (9.4-12.4); Monocytes # (auto) 0.76 K/uL (0.11-0.59); Monocytes % (auto) 7.6 %; Neutrophils # (auto) 7.61 K/uL (1.40-6.50); Neutrophils % (auto) 75.8 %; Platelet Count 260 K/uL (130-400); RDW Coefficient of Variation 12.4 % (11.5-14.5); RDW Standard Deviation 43.4 fL (36.4-46.3); Red Blood Count 3.96 M/uL (4.20-5.40); White Blood Count 10.04 K/ul (4.8-10.8)
[2024-06-02 07:29] LABS: Albumin Globulin Ratio 1.1 (0.9-2); Albumin Level 3.6 gm/dl (3.4-5.0); BUN Creatinine Ratio 14.6 (10-20); Bilirubin,Total 0.9 mg/dl (0.2-1.0); Calcium 8.3 mg/dl (8.6-10.3); Creatinine Clr Calc Pharmacy 39.4 ml/min; Est GFR (Non-African American) 63.9 ml/min; Globulin 3.2 gm/dl (2.5-4.0); Potassium 3.9 mmol/L (3.5-5.1); Total Protein 6.8 gm/dl (6.0-8.3)
--- NOTE | 2024-06-02 11:34 | Orthopedic Progress Note ---
Date of Service June 02, 2024 Assessment & Plan (1) Closed fracture dislocation of shoulder: Postop day 2 for closed reduction of the glenohumeral fracture dislocation under anesthesia. - Continue sling and nonweightbearing to the right upper extremity. - Sling can be open for elbow wrist and digital range of motion. She can use the arm for eating and other ADLs with minimal weightbearing and with the arm held closely to her side. Prefer no external rotation for several weeks. - Plan for 6 weeks of strict sling use followed by physical therapy to optimize functional range of motion. No plans for surgical intervention at this time Dispo: Orthopedically stable for discharge. Subjective Operation Date: 05/31/24 08:00 Actual Procedures p Right Shoulder Closed Reduction(Right) - Dario Vasquez MD Zari is an 89-year-old female who is postop day 2 from her right shoulder closed reduction by Dr. Vasquez. She is resting in her hospital bed. She is hard of hearing and also has some difficulty with [place], however she is able to provide me with an update on herself today. She states she is doing well. She is wearing her sling and abduction pillow as instructed. She denies any fever, chills or constitutional symptoms. She denies any loss of sensation in the right upper extremity, specifically around the deltoid. No other questions or concerns today. Review of Systems All systems reviewed & are unremarkable except as noted in HPI & below. Physical Exam General: Alert and oriented. He is a little hard of hearing. Right shoulder: Inspection unremarkable. No obvious deformity. No open wounds. She is resting in her sling with abduction pillow in place. Sensation intact. Distal pulses palpated. Cap refill less than 3 seconds. Psychiatric A+Ox3, euthymic affect Results & Data Results & Data Laboratory Results . Diagnostic Findings . PG Care Time/CCT Total # of Minutes Spent Total Time Spent with Patient: Total time spent is greater than 50% in coordination of care (as documented) at patient's floor/unit and/or counseling patient: Coding Level of Care Code 59217 Post Operative Follow-Up Diagnoses Closed fracture dislocation of shoulder S42.90XA
--- NOTE | 2024-06-02 14:04 | Hospitalist Progress Note ---
Date of Service June 02, 2024 Assessment & Plan (1) Dislocation of right shoulder joint: Plan: Presented to the ED via EMS after she sustained a mechanical fall due to placing weight on her trash can which gave out from under her Did not hit her head or lose consciousness Sustained an anterior right shoulder dislocation with associated hillSachs impaction injury with displaced comminuted right humeral head fracture which involves the greater tuberosity Patient had right shoulder closed reduction done in the OR by orthopedics PT/OT recommends inpatient rehab Pain control with scheduled Tylenol. Patient has not been using morphine lately. Will discontinue. Discontinue IV Narcan as well. Heart healthy diet with easy to texture and aspiration precautions Fall precautions (2) Fall: Plan: Patient sustained mechanical fall as she tried to place her weight on her garbage can earlier today which slid out from under her causing her to fall to the ground Rest of care per right shoulder dislocation plan PT/OT recommend inpatient rehab (3) Polymyalgia rheumatica: Plan: Is on chronic 5 mg prednisone daily No signs of adrenal sufficiency Will continue her home 5 mg prednisone daily (4) TIA (transient ischemic attack): Plan: Nonfocal neurologic exam Denies new neurologic symptoms prior to or after fall Continue home statin Plan PT/OT recommends inpatient rehab. Case management involved Admission and Anticipated Discharge Date Admission Date: May 30, 2024 Subjective Patient feels well. Denies chest pain or shortness of breath. Review of Systems Review of Systems: All systems reviewed & are unremarkable except as noted in Subjective Physical Exam Physical Exam: General: Awake, conversant Heart: S1, S2/regular rate and rhythm, no murmur rubs or gallops Lungs: Clear to auscultation bilaterally. Normal effort Abdomen: Soft/nontender/nondistended. No hepatosplenomegaly Extremities: No clubbing/cyanosis. No edema. Right arm in sling. Behavior: Appropriate, cooperative Results & Data Results & Data Vital Signs (Past 12 Hours) Vital Signs Temp Pulse Resp BP Pulse Ox O2 Del Method 06/02/24 07:21 36.7 C 63 18 165/72 H 95 Room Air Laboratory Results Abnormal lab results 06/02/24 Range/Units 06:54 RBC 3.96 L (4.20-5.40) M/uL Neut # (Auto) 7.61 H (1.40-6.50) K/uL [place] # (Auto) 0.76 H (0.11-0.59) K/uL Glucose 113 H (70-99(Fasting)) mg/dl Calcium 8.3 L (8.6-10.3) mg/dl PG Care Time/CCT Total # of Minutes Spent Total Time Spent with Patient: Total time spent is greater than 50% in coordination of care (as documented) at patient's floor/unit and/or counseling patient: Coding Level of Care Code 10024 SUB INP/OBS CARE 2/35MIN Diagnoses Dislocation of right shoulder joint S43.004A Fall W19.XXXA Polymyalgia rheumatica M35.3 TIA (transient ischemic attack) G45.9
--- NOTE | 2024-06-03 15:43 | Hospitalist Progress Note ---
Date of Service June 03, 2024 Assessment & Plan (1) Dislocation of right shoulder joint: Plan: Presented to the ED via EMS after she sustained a mechanical fall due to placing weight on her trash can which gave out from under her Did not hit her head or lose consciousness Sustained an anterior right shoulder dislocation with associated hillSachs impaction injury with displaced comminuted right humeral head fracture which involves the greater tuberosity Patient had right shoulder closed reduction done in the OR by orthopedics PT/OT recommends inpatient rehab Pain control with scheduled Tylenol. Heart healthy diet with easy to texture and aspiration precautions Fall precautions (2) Fall: Plan: Patient sustained mechanical fall as she tried to place her weight on her garbage can earlier today which slid out from under her causing her to fall to the ground Rest of care per right shoulder dislocation plan PT/OT recommend inpatient rehab (3) Polymyalgia rheumatica: Plan: Is on chronic 5 mg prednisone daily No signs of adrenal sufficiency Will continue her home 5 mg prednisone daily (4) TIA (transient ischemic attack): Plan: Nonfocal neurologic exam Denies new neurologic symptoms prior to or after fall Continue home statin Plan PT/OT recommends inpatient rehab. Case management involved Admission and Anticipated Discharge Date Admission Date: May 30, 2024 Subjective Patient feels well. Denies chest pain or shortness of breath. Review of Systems Review of Systems: All systems reviewed & are unremarkable except as noted in Subjective Physical Exam Physical Exam: General: Awake, conversant Heart: S1, S2/regular rate and rhythm, no murmur rubs or gallops Lungs: Clear to auscultation bilaterally. Normal effort Abdomen: Soft/nontender/nondistended. No hepatosplenomegaly Extremities: No clubbing/cyanosis. No edema. Right arm in sling. Behavior: Appropriate, cooperative Results & Data Results & Data Vital Signs (Past 12 Hours) Vital Signs Temp Pulse Resp BP Pulse Ox O2 Del Method 06/03/24 15:31 36.7 C 61 18 138/76 96 Room Air 06/03/24 08:06 36.4 C L 77 16 136/7 L 77 L Room Air 06/03/24 07:20 Room Air PG Care Time/CCT Total # of Minutes Spent Total Time Spent with Patient: Total time spent is greater than 50% in coordination of care (as documented) at patient's floor/unit and/or counseling patient: Coding Level of Care Code 41667 SUB INP/OBS CARE MIN Diagnoses Dislocation of right shoulder joint S43.004A Fall W19.XXXA Polymyalgia rheumatica M35.3 TIA (transient ischemic attack) G45.9
--- NOTE | 2024-06-04 14:55 | Hospitalist Progress Note ---
Date of Service June 04, 2024 Assessment & Plan (1) Dislocation of right shoulder joint: Plan: Presented to the ED via EMS after she sustained a mechanical fall due to placing weight on her trash can which gave out from under her Did not hit her head or lose consciousness Sustained an anterior right shoulder dislocation with associated hillSachs impaction injury with displaced comminuted right humeral head fracture which involves the greater tuberosity Patient had right shoulder closed reduction done in the OR by orthopedics PT/OT recommends inpatient rehab Pain control with scheduled Tylenol. Heart healthy diet with easy to texture and aspiration precautions Fall precautions (2) Fall: Plan: Patient sustained mechanical fall as she tried to place her weight on her garbage can earlier today which slid out from under her causing her to fall to the ground Rest of care per right shoulder dislocation plan PT/OT recommend inpatient rehab (3) Polymyalgia rheumatica: Plan: Is on chronic 5 mg prednisone daily No signs of adrenal sufficiency Will continue her home 5 mg prednisone daily (4) TIA (transient ischemic attack): Plan: Nonfocal neurologic exam Denies new neurologic symptoms prior to or after fall Continue home statin Plan PT/OT recommends inpatient rehab. Case management working on placement Admission and Anticipated Discharge Date Admission Date: May 30, 2024 Subjective Patient has no new complaints. Feeling well overall. Awaiting rehab placement. Review of Systems Review of Systems: All systems reviewed & are unremarkable except as noted in Subjective Physical Exam Physical Exam: General: Awake, conversant Heart: S1, S2/regular rate and rhythm, no murmur rubs or gallops Lungs: Clear to auscultation bilaterally. Normal effort Abdomen: Soft/nontender/nondistended. No hepatosplenomegaly Extremities: No clubbing/cyanosis. No edema. Right arm in sling. Behavior: Appropriate, cooperative Results & Data Results & Data Vital Signs (Past 12 Hours) Vital Signs Temp Pulse Resp BP Pulse Ox O2 Del Method 06/04/24 07:30 Room Air 06/04/24 07:10 36.5 C 65 16 157/77 H 94 Room Air PG Care Time/CCT Total # of Minutes Spent Total Time Spent with Patient: Total time spent is greater than 50% in coordination of care (as documented) at patient's floor/unit and/or counseling patient: Coding Level of Care Code 98664 SUB INP/OBS CARE 2/35MIN Diagnoses Dislocation of right shoulder joint S43.004A Fall W19.XXXA Polymyalgia rheumatica M35.3 TIA (transient ischemic attack) G45.9
--- NOTE | 2024-06-05 14:41 | Hospitalist Progress Note ---
Date of Service June 05, 2024 Assessment & Plan (1) Dislocation of right shoulder joint: Plan: Presented to the ED via EMS after she sustained a mechanical fall due to placing weight on her trash can which gave out from under her Did not hit her head or lose consciousness Sustained an anterior right shoulder dislocation with associated hillSachs impaction injury with displaced comminuted right humeral head fracture which involves the greater tuberosity Patient had right shoulder closed reduction done in the OR by orthopedics PT/OT recommends inpatient rehab Pain control with scheduled Tylenol. Heart healthy diet with easy to texture and aspiration precautions Fall precautions (2) Fall: Plan: Patient sustained mechanical fall as she tried to place her weight on her garbage can earlier today which slid out from under her causing her to fall to the ground Rest of care per right shoulder dislocation plan PT/OT recommend inpatient rehab (3) Polymyalgia rheumatica: Plan: Is on chronic 5 mg prednisone daily No signs of adrenal sufficiency Will continue her home 5 mg prednisone daily (4) TIA (transient ischemic attack): Plan: Nonfocal neurologic exam Denies new neurologic symptoms prior to or after fall Continue home statin Plan PT/OT recommends inpatient rehab. Peer to peer completed with insurance. Inpatient rehab denied. Case management working on SNF placement Admission and Anticipated Discharge Date Admission Date: May 30, 2024 Subjective Patient has no new complaints. Review of Systems Review of Systems: All systems reviewed & are unremarkable except as noted in Subjective Physical Exam Physical Exam: General: Awake, conversant Heart: S1, S2/regular rate and rhythm, no murmur rubs or gallops Lungs: Clear to auscultation bilaterally. Normal effort Abdomen: Soft/nontender/nondistended. No hepatosplenomegaly Extremities: No clubbing/cyanosis. No edema. Right arm in sling. Behavior: Appropriate, cooperative Results & Data Results & Data Vital Signs (Past 12 Hours) Vital Signs Temp Pulse Resp BP Pulse Ox O2 Del Method 06/05/24 07:15 Room Air 06/05/24 06:58 36.6 C 71 16 146/83 H 98 Room Air PG Care Time/CCT Total # of Minutes Spent Total Time Spent with Patient: Total time spent is greater than 50% in coordination of care (as documented) at patient's floor/unit and/or counseling patient: Coding Level of Care Code 69522 SUB INP/OBS CARE 2/35MIN Diagnoses Dislocation of right shoulder joint S43.004A Fall W19.XXXA Polymyalgia rheumatica M35.3 TIA (transient ischemic attack) G45.9
[2024-06-05 21:09] VITALS: O2SAT 96
--- NOTE | 2024-06-06 09:47 | Discharge Summary ---
Date of Service June 06, 2024 Admission HPI Per Admitting Provider Lauren is an 89-year-old female with a past medical history significant for PMR and giant cell arteritis (on 5 mg prednisone daily), osteoporosis, TIA, who presented to the [facility] ED on 05/30/2024 via EMS after sustaining a ground-level fall at home with resultant right upper extremity pain. She was noted to be hypertensive on arrival at 217/115 but was otherwise stable. X-ray of the right humerus was read as anterior right shoulder dislocates that with an associated he Hill-Sachs impaction injury with displaced commuted right humeral head fracture which involves the greater tuberosity. No distal right humeral fracture. Chest x-ray was negative for other signs of acute findings besides her known right shoulder injury. The ED spoke with orthopedics who explained that the patient should be placed in a sling after shoulder dislocation reduction followed outpatient. After discussions with the patient and family it was determined that the patient is not safe to return home tonight as she lives by herself and family is unable to care tonight. Prior to admission the patient was given 5 mg oxycodone, 25 mcg IV fentanyl, and 1 g p.o. Tylenol. Patient was sitting in bed in no acute distress at time of exam with her daughter bedside, history is obtained both. The patient explains that she normally does not leave her house but needed to check her trash can outside to see if she accidentally threw something away that she should not have. Her daughter explains that the patient has a garbage can on wheels, she placed her weight on the garbage can to look in in the garbage can rolled out from under her causing her to fall. The patient denies hitting her head or losing consciousness. Her only pain at this time is her right shoulder pain. Denies lightheadedness, dizziness, chest pain, palpitations, unilateral weakness or paresthesias prior to her fall. Her daughter explains that she will be able to move in with her mother to help care for her however she is unable to coordinate this tonight and should be able to take her home tomorrow, 05/31/2024. We discussed CODE STATUS, likely explained that the patient is a DNR/DNI. She would want her daughter to make medical decisions for her if she cannot make them herself. Please refer to Dr. Sher' attestation for any changes to the treatment plan Admission Exam Per Admitting Provider General: In no acute distress, stated age, nontoxic-appearing HEENT: Normocephalic, atraumatic, no scleral icterus, pupils around round, symmetrical, and reactive to light, dry mucus membranes, trachea midline, no thyromegaly Chest/Pulm: No respiratory distress, symmetrical chest expansion, clear breath sounds throughout Cardiac: RRR, no murmurs noted Abdomen: Negative for ascites and bruising, normoactive bowel sounds, soft, non- tender to palpation throughout Musculoskeletal: Patient with right upper extremity currently in April rotated with elbow flexed resting on her chest with anterior deformity. No other acute trauma on examination Extremities: Radial, dorsalis pedis, and posterior tibial pulses are intact and symmetrical, no edema noted in the BL LE's Skin: Patient with small skin abrasion on the lateral aspect of the right fifth digit with dried blood, currently without signs of bleeding Neuro: Alert and oriented to person, place, month, year, and president, no focal defects, no tremors noted Psych: No acute distress, calm and cooperative during the exam Principal Diagnosis Closed fracture dislocation of right shoulder status post closed reduction Fall Discharge Exam General: Awake, conversant Heart: S1, S2/regular rate and rhythm, no murmur rubs or gallops Lungs: Clear to auscultation bilaterally. Normal effort Abdomen: Soft/nontender/nondistended. No hepatosplenomegaly Extremities: No clubbing/cyanosis. No edema. Right arm in sling. Behavior: Appropriate, cooperative Discharge Data Allergies Allergy/AdvReac Type Severity Reaction Status Date / Time No Known Drug Allergies Allergy Unknown Unknown Verified 05/30/24 19:16 Consultations 05/30/24 19:03 ED Decision to Admit Stat 05/30/24 19:36 Consult Orthopedic Surgery Routine Procedures Performed Operation Date: 05/31/24 08:00 Actual Procedures p Right Shoulder Closed Reduction (Right) - Dario Vasquez MD Ordered Studies 05/30/24 20:22 CT shoulder RT wo con Stat 05/31/24 [place] shoulder RT min 2V Routine Hospital Course (1) Dislocation of right shoulder joint: Presented to the ED via EMS after she sustained a mechanical fall due to placing weight on her trash can which gave out from under her Did not hit her head or lose consciousness Sustained an anterior right shoulder dislocation with associated hillSachs impaction injury with displaced comminuted right humeral head fracture which involves the greater tuberosity Patient had right shoulder closed reduction done in the OR by orthopedics PT/OT recommends rehab Pain control with scheduled Tylenol. Heart healthy diet with easy to texture and aspiration precautions Fall precautions (2) Fall: Patient sustained mechanical fall as she tried to place her weight on her garbage can earlier today which slid out from under her causing her to fall to the ground Rest of care per right shoulder dislocation plan PT/OT recommend rehab (3) Polymyalgia rheumatica: Is on chronic 5 mg prednisone daily No signs of adrenal sufficiency Will continue her home 5 mg prednisone daily (4) TIA (transient ischemic attack): Nonfocal neurologic exam Denies new neurologic symptoms prior to or after fall Continue home statin Plan Discharge to SNF Total Time Total Time Spent Total Time Spent (In Minutes): 35 Discharge Plan Discharge Items Patient Disposition: Transfer Shelter Fac Reason For Visit: FALL, RIGHT SHOULDER DISLOCATION Discharge Diagnosis: Closed fracture dislocation of right shoulder status post closed reduction Fall Activity: Resume your previous activity Non-emergency contact: Primary Care Provider Call non-emergency contact if: you have any medication questions and your symptoms worsen Follow-up/Referrals: Corry Olivarez MD [Primary Care Provider] - Diet: Heart Healthy Addtl Attending Provider Instructions: Advised to follow-up with PCP in 1 week Pending Studies at Discharge: No Stand-Alone Forms: My [facility] Skilled Items Patient informed of condition?: Yes DNR: Yes Discharge Level of Care: Skilled Communicable Disease: No Discharge Prognosis: Stable Lines: None Urinary Catheter: No Medications and DC Order Prescriptions: Continued ibuprofen 200 mg capsule 200 mg PO BID PRN (Reason: Pain) atorvastatin 20 mg tablet 20 mg PO QPM Qty: 90 3RF prednisone 5 mg tablet 5 mg PO QAM fluoxetine [Prozac] 20 mg capsule 20 mg PO QAM atorvastatin 20 mg Tablet 20 mg PO PM calcium carbonate [Calcium 600] 600 mg calcium (1,500 mg) Tablet 600 mg PO DAILY cholecalciferol (vitamin D3) [Vitamin D3] 50 mcg (2,000 unit) Tablet 50 mcg PO DAILY Discharge Orders: Discharge Order (Routine); Ordered 06/06/24 Ordered By: Tim Kapoor/Other Patient Handouts: ED Dislocation: Shoulder (Reduced) Admission Data Admit Date/Time: 05/30/24 18:40 Attending Provider: Tim Rivera Admit Provider: Pawel Sher Primary Care Provider: Corry Olivarez V. Other Providers: Pawel Sher; Dario Vasquez; [facility]; [facility]; [facility] Other Interventions: Discharge Summary Assessment (RN) Last Done: 06/06/24 11:21
[2024-06-06 11:37] VITALS: BP 136/78; PULSE 64; RESP 16; TEMP 97.9
== END 2024-06-06 12:15 | DRG 563 ==
LOC: ED 16:13 → 3N 18:40 → SUATTDRO 18:40 → 3N 20:18